=== PATIENT | female | born 1970 | race American Indian/Alaskan Native ===

== ENCOUNTER 2017-01-04 08:34 | Emergency (ER) | payer SELFPAY ==
--- NOTE | 2017-01-04 11:51 | Emergency Department Report ---
<JACOB ROLDAN - Last Filed: 01/04/17 13:21> ED General Adult HPI - General Chief complaint: Chest Pain Stated complaint: FEVER/DIZZINESS/PAIN IN BREAST Time Seen by Provider: 01/04/17 11:09 Source: patient Mode of arrival: Ambulatory Limitations: No Limitations - History of Present Illness Initial comments: bilat breast pain and nipple discharge x 6 months , hx bilat breast ca, s/p bilat mastectomy 3 yrs ago Onset/Timin -: month(s) Location: chest (bilat breast) Severity scale (0 -10): 4 Quality: aching, sharp Consistency: intermittent Improves with: none Worsens with: movement, other (palpation) Associated Symptoms: denies: chest pain, fever/chills, malaise, nausea/vomiting , rash, shortness of breath, syncope, weakness Treatments Prior to Arrival: none - Related Data Previous Rx's Medication Instructions Recorded Last Taken Type traMADol [Ultram 50 MG tab] 50 mg PO Q6HR PRN #30 tablet 01/04/17 Unknown Rx Allergies Allergy/AdvReac Type Severity Reaction Status Date / Time No Known Allergies Allergy Verified 01/04/17 08:45 ED Review of Systems ROS: Stated complaint: FEVER/DIZZINESS/PAIN IN BREAST Other details as noted in HPI Constitutional: denies: chills, fever Eyes: denies: eye pain, eye discharge, vision change ENT: denies: ear pain, throat pain Respiratory: denies: cough, shortness of breath, wheezing Cardiovascular: denies: palpitations, dyspnea on exertion, orthopnea, edema, syncope, paroxysmal nocturnal dyspnea Endocrine: no symptoms reported Gastrointestinal: denies: abdominal pain, nausea, diarrhea Genitourinary: denies: urgency, dysuria, discharge Musculoskeletal: other (bilat breast pain ) Neurological: denies: headache, weakness, paresthesias Psychiatric: denies: anxiety, depression Hematological/Lymphatic: denies: easy bleeding, easy bruising ED Past Medical Hx - Past Medical History Hx of Cancer: Yes (bilat breast) Additional medical history: fibroids. fibrocystic breast - Surgical History Hx Appendectomy: Yes Hx Breast Surgery: Yes (bilateral mast / breast implants) Additional Surgical History: tubal ligation. tonsillectomy. partial hysterectomy - Social History Smoking Status: Current Every Day Smoker Substance Use Type: Alcohol, Marijuana, Prescribed - Medications Home Medications: Home Medications Medication Instructions Recorded Confirmed Last Taken Type traMADol [Ultram 50 MG tab] 50 mg PO Q6HR PRN #30 tablet 01/04/17 Unknown Rx ED Physical Exam - General Limitations: No Limitations General appearance: alert, in no apparent distress - Head Head exam: Present: atraumatic, normocephalic - Eye Eye exam: Present: normal appearance - ENT ENT exam: Present: mucous membranes moist - Neck Neck exam: Present: normal inspection - Respiratory Respiratory exam: Present: normal lung sounds bilaterally, chest wall tenderness (bilat breast ). Absent: respiratory distress, wheezes, rales, rhonchi, stridor, accessory muscle use, decreased breath sounds, prolonged expiratory - Cardiovascular Cardiovascular Exam: Present: regular rate, normal rhythm. Absent: systolic murmur, diastolic murmur, rubs, gallop - GI/Abdominal GI/Abdominal exam: Present: soft, normal bowel sounds - Rectal Rectal exam: Present: deferred - External exam: Present: other (exam deferred ) - Extremities Exam Extremities exam: Present: normal inspection - Back Exam Back exam: Present: normal inspection - Neurological Exam Neurological exam: Present: alert, oriented X3, CN II-XII intact - Psychiatric Psychiatric exam: Present: normal affect, normal mood - Skin Skin exam: Present: warm, dry, other (bilat breast tenderness no eythema no ecchymosis no discharge at this time , bilat axillary tenderness ). Absent: erythema, ecchymosis - Expanded Skin Exam Expanded Type of lesion: Absent: rash, abscess, laceration, foreign body, bite/sting, abrasion ED Course Vital Signs 01/04/17 01/04/17 08:50 13:30 Temperature 98.8 F 98.1 F Pulse Rate 98 H 83 Respiratory 17 16 Rate Blood Pressure 120/79 Blood Pressure 119/72 [Left] O2 Sat by Pulse 99 98 Oximetry ED Medical Decision Making - Lab Data Result diagrams: 01/04/17 12:16 01/04/17 12:15 - Medical Decision Making pt is a 46 y/o aaf with hx of bilat breast ca , s/p bilat mastectomy 3 yrs ago with implantation , now presents for bilat breast and chest wall pain x 6 months pt endorses intermittent purulent nipple discharge last 2 days ago and bilat axillary tenderness, Exam with Risk Modeler at beside: appearance symetricle bilat no discharge no erythema no bilat breast wall tenderness radiating to bilat axilallary region no palpable lymph, no fluctuance no nipple discharge no excoriaton no necrosis, pt denies fever no chills, pt previously treated at [facility] , [facility] Krishnan, is known at this practice will follow up with same sherly, pt instructed to follow today or tomorrow at latest pt verbalized undertstanding and agreement with tx plan. Plan: CXR: normal. CBC, CMP,: no diagnostics supporting acute infection , no nipple discharge no erythema , pt will follow up with [facility] Provider sherly as discussed and agreed Critical care attestation.: If time is entered above; I have spent that time in minutes in the direct care of this critically ill patient, excluding procedure time. ED Disposition Disposition: DC-01 TO HOME OR SELFCARE Is pt being admited?: No Does the pt Need Aspirin: No Condition: Good Instructions: Chest Pain (ED), Thoracic Pain (ED) Additional Instructions: Follow up with [facility] Fuller , previous surgeon and oncology , as soon as possible Prescriptions: traMADol [Ultram 50 MG tab] 50 mg PO Q6HR PRN #30 tablet PRN Reason: Pain Referrals: PRIMARY CARE,MD [Primary Care Provider] - 3-5 Days Forms: Work/School Release Form(ED) Time of Disposition: 13:15 <JERAD YANCEY - Last Filed: 01/04/17 13:46> ED Medical Decision Making - Lab Data Result diagrams: 01/04/17 12:16 01/04/17 12:15
[2017-01-04] MEDS ORDERED: ULTRAM PO ONE (11:55)
[2017-01-04 12:22] LABS: Basophils % (Auto) 1.1 % (0.0-1.8); Eosinophils % (Auto) 2.6 % (0.0-4.3); Hematocrit 39.2 % (30.3-42.9); Hemoglobin 13.2 gm/dl (10.1-14.3); Mean Corpuscular HGB Conc 34 % (30-34); Mean Corpuscular Hemoglobin 34 pg (28-32); Mean Corpuscular Volume 100 fl (79-97); Platelet Count 206 K/mm3 (140-440); Red Blood Count 3.93 M/mm3 (3.65-5.03); Red Cell Distribution Width 13.7 % (13.2-15.2); White Blood Count 7.8 K/mm3 (4.5-11.0)
--- NOTE | 2017-01-04 12:33 | XRay Report ---
CHEST 2 VIEWS INDICATION: Breast mass bilateral. History of bilateral mastectomy with implants 2 years ago. COMPARISON: 05/02/2016. FINDINGS: PA and lateral chest radiographs demonstrate normal cardiomediastinal silhouette. Clear lungs. Intact bones. CONCLUSION: No acute disease in the chest. Thank you for the opportunity to participate in this patient's care.
[2017-01-04 12:48] LABS: Alanine Aminotransferase 10 units/L (7-56); Albumin/Globulin Ratio 1.4 %; Alkaline Phosphatase 67 units/L (35-129); Anion Gap 17 mmol/L; Blood Urea Nitrogen 7 mg/dL (7-17); Calcium 8.4 mg/dL (8.4-10.2); Carbon Dioxide 24 mmol/L (22-30); Chloride 103.2 mmol/L (98-107); Glucose 75 mg/dL (65-100); Potassium 3.9 mmol/L (3.6-5.0); Sodium 140 mmol/L (137-145); Total Protein 6.8 g/dL (6.3-8.2)
[2017-01-04 13:31] VITALS: BP 119/72
== END 2017-01-04 13:32 | disposition home or self-care (01) ==
LOC: ED 08:34
DX: N64.4 Mastodynia (principal); N64.52 Nipple discharge; R07.89 Other chest pain; D25.9 Leiomyoma of uterus, unspecified; F17.200 Nicotine dependence, unspecified, uncomplicated; F12.10 Cannabis abuse, uncomplicated; Z90.89 Acquired absence of other organs; Z90.710 Acquired absence of both cervix and uterus; Z98.51 Tubal ligation status; Z90.49 Acquired absence of other specified parts of digestive tract; Z85.3 Personal history of malignant neoplasm of breast; Z90.13 Acquired absence of bilateral breasts and nipples
CPT/HCPCS: 36415; 71020; 80053; 85025; 99284

== ENCOUNTER 2017-01-11 17:43 | Emergency (ER) | payer SELFPAY | END 2017-01-11 18:27 | disposition left against medical advice (07) | LOC: ED 17:43 | DX: R50.9 Fever, unspecified (principal); Z53.21 Procedure and treatment not carried out due to patient leaving prior to being seen by health care provider ==

== ENCOUNTER 2017-03-01 17:08 | Emergency (ER) | payer SELFPAY ==
[2017-03-01 19:14] VITALS: BP 124/89
[2017-03-01 19:33] LABS: Basophils % (Auto) 1.1 % (0.0-1.8); Eosinophils % (Auto) 3.9 % (0.0-4.3); Hematocrit 36.7 % (30.3-42.9); Hemoglobin 12.7 gm/dl (10.1-14.3); Mean Corpuscular HGB Conc 35 % (30-34); Mean Corpuscular Hemoglobin 35 pg (28-32); Mean Corpuscular Volume 100 fl (79-97); Platelet Count 201 K/mm3 (140-440); Red Blood Count 3.69 M/mm3 (3.65-5.03); Red Cell Distribution Width 13.5 % (13.2-15.2); White Blood Count 8.9 K/mm3 (4.5-11.0)
[2017-03-01 19:53] LABS: Alanine Aminotransferase 16 units/L (7-56); Albumin/Globulin Ratio 1.4 %; Alkaline Phosphatase 63 units/L (35-129); BUN/Creatinine Ratio 14.54; Blood Urea Nitrogen 16 mg/dL (7-17); Calcium 8.1 mg/dL (8.4-10.2); Carbon Dioxide 24 mmol/L (22-30); Glucose 86 mg/dL (65-100); Total Protein 6.9 g/dL (6.3-8.2)
[2017-03-01 19:54] LABS: Anion Gap 17 mmol/L; Chloride 105.6 mmol/L (98-107); Potassium 3.7 mmol/L (3.6-5.0); Sodium 143 mmol/L (137-145)
[2017-03-01] MEDS ORDERED: FLEXERIL PO ONE (21:05)
[2017-03-01] MEDS ORDERED: TORADOL IM ONE (21:05)
[2017-03-01 22:10] LABS: Bacteria,Urine 3+ /HPF (Negative); Bilirubin,Urine NEG (Negative); Blood,Urine MOD (Negative); Ketones,Urine NEG (Negative); Leukocyte Esterase,Urine NEG (Negative); Mucus,Urine 3+ /HPF; Nitrite,Urine POS (Negative); Protein,Urine <15 mg/dL mg/dL (Negative); Urobilinogen,Urine < 2.0 mg/dL (<2.0)
--- NOTE | 2017-03-01 22:18 | Emergency Department Report ---
ED General Adult HPI - General Chief complaint: Pain General Stated complaint: LT BREAST PAIN Time Seen by Provider: 03/01/17 20:43 Source: family Mode of arrival: Ambulatory Limitations: No Limitations - History of Present Illness Initial comments: low back pain radiating to left LE x 4 days does endorse unrinary frequency and urgency no burning no vaginal discharge no sexual activity , also requesting referral to Breast clinic follow up mastectomy 6 yrs ago pt endorses that she lost her insurance and has been unable to see produce runner for follow up mammogram , pt denies breast symptoms at this time Onset/Timin -: days(s) Location: back Radiation: extremity Severity scale (0 -10): 7 Quality: aching Consistency: intermittent Improves with: rest Worsens with: movement, other (bending and twisting ) Associated Symptoms: denies: chest pain, diaphoresis, fever/chills, loss of appetite, malaise, nausea/vomiting, rash, shortness of breath Treatments Prior to Arrival: none - Related Data Previous Rx's Medication Instructions Recorded Last Taken Type traMADol [Ultram 50 MG tab] 50 mg PO Q6HR PRN #30 tablet 01/04/17 Unknown Rx Cyclobenzaprine [Flexeril] 10 mg PO TID PRN #30 tablet 03/01/17 Unknown Rx Naproxen [Naprosyn TAB] 500 mg PO BID PRN #30 tablet 03/01/17 Unknown Rx Sulfamethoxazole/Trimethoprim 1 each PO BID #14 tablet 03/01/17 Unknown Rx [Bactrim DS TAB] Allergies Allergy/AdvReac Type Severity Reaction Status Date / Time No Known Allergies Allergy Verified 03/01/17 19:09 ED Review of Systems ROS: Stated complaint: LT BREAST PAIN Other details as noted in HPI Constitutional: denies: chills, fever Eyes: denies: eye pain, eye discharge, vision change ENT: denies: ear pain, throat pain Respiratory: denies: cough, shortness of breath, wheezing Cardiovascular: denies: chest pain, palpitations Endocrine: no symptoms reported Gastrointestinal: denies: abdominal pain, nausea, diarrhea Genitourinary: urgency, frequency. denies: dysuria, hematuria, discharge, abnormal menses, dyspareunia Musculoskeletal: back pain Skin: denies: rash, lesions Neurological: denies: headache, weakness, numbness, paresthesias, abnormal gait , vertigo Psychiatric: denies: anxiety, depression Hematological/Lymphatic: denies: easy bleeding, easy bruising ED Past Medical Hx - Past Medical History Previous Medical History?: Yes Additional medical history: fibroids. fibrocystic breast - Surgical History Hx Appendectomy: Yes Hx Breast Surgery: Yes (bilateral mast / breast implants) Additional Surgical History: tubal ligation. tonsillectomy. partial hysterectomy - Social History Smoking Status: Current Every Day Smoker Substance Use Type: Alcohol - Medications Home Medications: Home Medications Medication Instructions Recorded Confirmed Last Taken Type traMADol [Ultram 50 MG tab] 50 mg PO Q6HR PRN #30 tablet 01/04/17 Unknown Rx Cyclobenzaprine [Flexeril] 10 mg PO TID PRN #30 tablet 03/01/17 Unknown Rx Naproxen [Naprosyn TAB] 500 mg PO BID PRN #30 tablet 03/01/17 Unknown Rx Sulfamethoxazole/Trimethoprim 1 each PO BID #14 tablet 03/01/17 Unknown Rx [Bactrim DS TAB] ED Physical Exam - General Limitations: No Limitations General appearance: alert, in no apparent distress - Head Head exam: Present: atraumatic, normocephalic - Eye Eye exam: Present: normal appearance - ENT ENT exam: Present: mucous membranes moist - Neck Neck exam: Present: normal inspection - Respiratory Respiratory exam: Present: normal lung sounds bilaterally. Absent: respiratory distress - Cardiovascular Cardiovascular Exam: Present: regular rate, normal rhythm. Absent: systolic murmur, diastolic murmur, rubs, gallop - GI/Abdominal GI/Abdominal exam: Present: soft, normal bowel sounds - Rectal Rectal exam: Present: deferred - Extremities Exam Extremities exam: Present: normal inspection, full ROM, normal capillary refill. Absent: tenderness, pedal edema, joint swelling, calf tenderness - Back Exam Back exam: Present: normal inspection, full ROM, CVA tenderness (L), other ( mild sciatic notch tenderness to deep palpation ). Absent: tenderness, CVA tenderness (R), muscle spasm, paraspinal tenderness, vertebral tenderness, rash noted - Expanded Back Exam Expanded Back exam: Sciatic Notch Tenderness: Left, Positive Straight Leg Raise: Left - Neurological Exam Neurological exam: Present: alert, oriented X3, CN II-XII intact, normal gait, reflexes normal. Absent: motor sensory deficit - Expanded Neurological Exam Expanded Patient oriented to: Present: person, place, time Speech: Present: fluid speech Cranial nerves: EOM's Intact: Normal, Gag Reflex: Normal, Tongue Deviation: Normal Cerebellar function: Finger to Nose: Normal, Heel to Archer: Normal, Romberg: Normal Upper motor neuron: Apolinar Neglect: Normal, Pronator Drift: Normal, Babinski Sign : Normal, Sensory Extinction: Normal Sensory exam: Upper Extremity Light Touch: Normal, Upper Extremity Pin Prick: Normal, Upper Extremity Temperature: Normal, UE 2 Point Discrimination: Normal, Lower Extremity Light Touch: Normal, Lower Extremity Pin Prick: Normal, Lower Extremity Temperature: Normal, LE 2 Point Discrimination: Normal Motor strength exam: RUE: 5, LUE: 5, RLE: 5, LLE: 5 DTR: bicep (R): 2+, bicep (L): 2+, tricep (R): 2+, tricep (L): 2+, knee (R): 2+ , knee (L): 2+, ankle (R): 2+, ankle (L): 2+ Best Eye Response ([place]): (4) open spontaneously Best Motor Response (Sofiya): (6) obeys commands Best Verbal Response ([place]): (5) oriented [place] Total: 15 - Psychiatric Psychiatric exam: Present: normal affect, normal mood - Skin Skin exam: Present: warm, dry, intact, normal color. Absent: rash ED Course Vital Signs 03/01/17 03/01/17 19:09 21:32 Temperature 98.9 F Pulse Rate 81 Respiratory 18 18 Rate Blood Pressure 124/89 O2 Sat by Pulse 100 Oximetry ED Medical Decision Making - Lab Data Result diagrams: 03/01/17 19:23 03/01/17 19:23 Laboratory Tests 03/01/17 03/01/17 03/01/17 19:23 19:23 21:47 WBC 8.9 RBC 3.69 Hgb 12.7 Hct 36.7 MCV 100 H MCH 35 H MCHC 35 H RDW 13.5 Plt Count 201 Lymph % (Auto) 46.8 H [place] % (Auto) 6.6 Eos % (Auto) 3.9 Baso % (Auto) 1.1 Lymph # 4.2 [place] # 0.6 Eos # 0.4 Baso # 0.1 Seg Neutrophils % 41.6 Seg Neutrophils # 3.7 Sodium 143 Potassium 3.7 Chloride 105.6 Carbon Dioxide 24 Anion Gap 17 BUN 16 Creatinine 1.1 Estimated GFR > 60 BUN/Creatinine Ratio 14.54 Glucose 86 Calcium 8.1 L Total Bilirubin 0.20 AST 20 ALT 16 Alkaline Phosphatase 63 Total Protein 6.9 Albumin 4.0 Albumin/Globulin Ratio 1.4 Urine Color Yellow Urine Turbidity Slightly-cloudy Urine pH 5.0 Ur Specific [place] 1.028 Urine Protein <15 mg/dl Urine Glucose (UA) Neg Urine Ketones Neg Urine Blood Mod Urine Nitrite Pos Ur Reducing Substances Not Reportable Urine Bilirubin Neg Urine Ictotest Not Reportable Urine Urobilinogen < 2.0 Ur Leukocyte Esterase Neg Urine WBC (Auto) 5.0 Urine RBC (Auto) 4.0 U Epithel Cells (Auto) 15.0 H Urine Bacteria (Auto) 3+ Urine Mucus 3+ Urine HCG, Qual Negative - Medical Decision Making pt is a 46 y/o aaf with hx breat CA, s/p bilat mastectomy 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 x 4 days pt endorse that she strained her back at work, exam: no posterior vertebral point tenderness no paraspinus muscle tenderness pos straight leg raise right , mild left cva tenderness , there is no paresthesia no numbness no tingling no loss or decrease in bowel or bladder function, pt remain ambulatory to baseline rom is unrestricted, ua; pos nitrates will tx for uti, nsaids prn pain, pt will follow up with [facility] next week, pt will follow up with [facility] will call on sunday to setup appointment for follow Mammogram and breast exams going forward pt verbalized agreement and understanding of discharge plan. Critical care attestation.: If time is entered above; I have spent that time in minutes in the direct care of this critically ill patient, excluding procedure time. ED Disposition Clinical Impression: UTI (urinary tract infection) Qualifiers: Urinary tract infection type: acute cystitis Hematuria presence: without hematuria Qualified Code(s): N30.00 - Acute cystitis without hematuria Low back strain Qualifiers: Encounter type: initial encounter Qualified Code(s): S39.012A - Strain of muscle, fascia and tendon of lower back, initial encounter Disposition: TO HOME OR SELFCARE Is pt being admited?: No Does the pt Need Aspirin: No Condition: Good Instructions: Low Back Strain (ED), Urinary Tract Infection in Women (ED) Additional Instructions: follow up with [facility] as directed [phone], and [facility] [phone] Prescriptions: Cyclobenzaprine [Flexeril] 10 mg PO TID PRN #30 tablet PRN Reason: Muscle Spasm Naproxen [Naprosyn TAB] 500 mg PO BID PRN #30 tablet PRN Reason: Pain , Severe (7-10) Sulfamethoxazole/Trimethoprim [Bactrim DS TAB] 1 each PO BID #14 tablet Referrals: PRIMARY CARE, [Primary Care Provider] - 3-5 Days Forms: Work/School Release Form(ED) Time of Disposition: 22:29
== END 2017-03-01 22:40 | disposition home or self-care (01) ==
LOC: ED 17:08
DX: N39.0 Urinary tract infection, site not specified (principal); S39.012A Strain of muscle, fascia and tendon of lower back, initial encounter; F17.210 Nicotine dependence, cigarettes, uncomplicated; X58.XXXA Exposure to other specified factors, initial encounter; Y93.89 Activity, other specified; Y92.89 Other specified places as the place of occurrence of the external cause; Y99.8 Other external cause status
CPT/HCPCS: 36415; 80053; 81001; 81025; 85025; 93005; 93010; 96372; 99283; J1885

== ENCOUNTER 2018-10-10 16:57 | Emergency (ER) | payer OTHER ==
--- NOTE | 2018-10-10 17:12 | Emergency Department Report ---
Blank Doc - Documentation Documentation: This is a 48-year-old female that presents with URI symptoms with n/v. This initial assessment/diagnostic orders/clinical plan/treatment(s) is/are subject to change based on patient's health status, clinical progression and re- assessment by fellow clinical providers in the ED. Further treatment and workup at subsequent clinical providers discretion. Patient/guardians urged not to elope from the ED as their condition may be serious if not clinically assessed and managed. Initial orders include: 1- Patient sent to [facility] for further evaluation and treatment 2- CXR
[2018-10-10 17:15] VITALS: BP 143/80
--- NOTE | 2018-10-10 17:55 | XRay Report ---
PROCEDURE: XR CHEST ROUTINE 2V TECHNIQUE: PA and lateral views of the chest. HISTORY: cough . History of breast cancer COMPARISONS: CXR 12/15/2018 FINDINGS: Lines, tubes, and devices: N/A Lungs and pleura: Trachea is normal in position. Lungs are clear of infiltrate, pleural effusion, vas cular congestion, or pneumothorax. No change. Nodular densities over each lung base are stable and li osvaldo represent nipple shadows. Cardiomediastinal silhouette: Cardiac and mediastinal silhouettes are unremarkable. Other: Bony structures are intact. IMPRESSION: No acute cardiopulmonary process seen. No change.. Nodular densities over each lung base likely repre sent nipple shadows and have been seen previously This document is electronically signed by Adrienne Stokes MD., October 10 2018 05:53:03 PM ET
[2018-10-10] MEDS ORDERED: DELTASONE PO ONE (17:59)
[2018-10-10] MEDS ORDERED: ZOFRAN ODT PO ONE (17:59)
[2018-10-10] MEDS ORDERED: ROBITUSSIN PO ONE (17:59)
--- NOTE | 2018-10-10 18:03 | Emergency Department Report ---
Minor Respiratory - HPI Chief Complaint: Upper Respiratory Infection Stated Complaint: COUGH/DIZZY/VOMIT/PAIN Time Seen by Provider: 10/10/18 17:11 Duration: 1 week Pain Location: Throat, Nose Severity: moderate Minor Respiratory: Yes Able to Tolerate Fluids (some), No Rhinorrhea, No Sore Throat, No Ear Pain, No Cough, No Sick Contacts, No Hemoptysis, No Chest Pain, No Shortness of Breath, No Fever Other History: She is a 48-year-old female who was presents to the ED complaining of mucus productive cough, lesion with some nausea vomiting. Patient is a cigarette smoker and has a history of asthma. Patient states his symptoms have gone on for about a week. Patient states she took an ibuprofen and Mucinex with the patient's that she has loss of appetite but she is able to eat moderately.Chest pain/shortness of breath/fever ED Review of Systems ROS: Stated complaint: COUGH/DIZZY/VOMIT/PAIN Other details as noted in HPI ED Past Medical Hx - Past Medical History Additional medical history: fibroids. fibrocystic breast - Surgical History Hx Appendectomy: Yes Hx Breast Surgery: Yes (bilateral mast / breast implants) Additional Surgical History: tubal ligation. tonsillectomy. partial hysterectomy. breast removal - Social History Smoking Status: Current Some Day Smoker Substance Use Type: Alcohol, Marijuana - Medications Home Medications: Home Medications Medication Instructions Recorded Confirmed Last Taken Type traMADol [Ultram 50 MG tab] 50 mg PO Q6HR PRN #30 tablet 01/04/17 Unknown Rx Cyclobenzaprine [Flexeril] 10 mg PO TID PRN #30 tablet 03/01/17 Unknown Rx Naproxen [Naprosyn TAB] 500 mg PO BID PRN #30 tablet 03/01/17 Unknown Rx Sulfamethoxazole/Trimethoprim 1 each PO BID #14 tablet 03/01/17 Unknown Rx [Bactrim DS TAB] Cyclobenzaprine [Flexeril] 10 mg PO TID PRN #30 tablet 06/08/18 Unknown Rx Ibuprofen 400 mg PO QID 5 Days #20 tablet 06/08/18 Unknown Rx Cyclobenzaprine [Flexeril] 10 mg PO QHS PRN #10 tablet 07/17/18 Unknown Rx Naproxen 500 mg PO Q8H PRN #20 tablet 07/17/18 Unknown Rx Acetamin/Codeine 120-12Mg/5 ml 5 ml PO TID PRN #60 ml 10/10/18 Unknown Rx [Tylenol/Codeine] Azithromycin [Zithromax] 250 mg PO DAILY #6 tablet 10/10/18 Unknown Rx Ondansetron [Zofran ODT TAB] 8 mg PO TID #20 tab.rapdis 10/10/18 Unknown Rx predniSONE [Deltasone] 40 mg PO QDAY #10 tab 10/10/18 Unknown Rx Minor Respiratory Exam - Exam General: Vital signs noted. No distress. Alert and acting appropriately. Neurologic: Alert and oriented, no deficits. Musculoskeletal: Unremarkable. ED Course Vital Signs 10/10/18 17:11 Temperature 98.2 F Pulse Rate 92 H Respiratory 18 Rate Blood Pressure 143/80 O2 Sat by Pulse 96 Oximetry ED Medical Decision Making - Radiology Data Radiology results: report reviewed, image reviewed interpreted by me: HISTORY: cough . History of breast cancer COMPARISONS: CXR 12/15/2018 FINDINGS: Lines, tubes, and devices: N/A Lungs and pleura: Trachea is normal in position. Lungs are clear of infiltrate, pleural effusion, vascular congestion, or pneumothorax. No change. Nodular densities over each lung base are stable and likely represent nipple shadows. Cardiomediastinal silhouette: Cardiac and mediastinal silhouettes are unremarkable. Other: Bony structures are intact. IMPRESSION: No acute cardiopulmonary process seen. No change.. Nodular densities over each lung base likely represent nipple shadows and have been seen previously This document is electronically signed by Adrienne Stokes MD., October 10 2018 05:53:03 PM ET Transcribed By: [facility] Dictated By: ADRIENNE STOKES MD Electronically Authenticated By: ADRIENNE STOKES MD Signed Date/Time: 10/10/18 1758 - Medical Decision Making 48-year-old male presents with flulike symptomsupper respiratory infection. Fever resolved no fever during the ED stay. Discussed with the patient symptomatic relief with [id number] medications. Discussed continue Tylenol and Motrin as needed for fever and pain. Discussed increase fluids and diet intake. Discussed rest much needed. Discussed daily vitamin C for immune booster. Discussed follow-up with hand compositor in 3-5 days. Patient verbally states she understands and will comply the following instructions and follow-up Vital signs stable. Patient is in no acute distress Critical care attestation.: If time is entered above; I have spent that time in minutes in the direct care of this critically ill patient, excluding procedure time. ED Disposition Clinical Impression: Upper respiratory infection Disposition: - TO HOME OR SELFCARE Is pt being admited?: No Does the pt Need Aspirin: No Condition: Stable Instructions: Viral Pneumonia (ED), Upper Respiratory Infection (ED), Viral Syndrome (ED) Additional Instructions: Make sure to follow up with the primary care physician as discussed. Take all your medications as you've been prescribed. If you have any worsening symptoms or develop new symptoms please return to ED immediately. Prescriptions: predniSONE [Deltasone] 40 mg PO QDAY #10 tab Acetamin/Codeine 120-12Mg/5 ml [Tylenol/Codeine] 5 ml PO TID PRN #60 ml PRN Reason: Pain Azithromycin [Zithromax] 250 mg PO DAILY #6 tablet Ondansetron [Zofran ODT TAB] 8 mg PO TID #20 tab.rapdis Referrals: [facility] [Other] - 3-5 Days Forms: Accompanied Note, Work/School Release Form(ED) Time of Disposition: 18:44
== END 2018-10-10 18:56 | disposition home or self-care (01) ==
LOC: ED 16:57
DX: J06.9 Acute upper respiratory infection, unspecified (principal); F17.200 Nicotine dependence, unspecified, uncomplicated; F12.10 Cannabis abuse, uncomplicated; Z90.710 Acquired absence of both cervix and uterus; Z98.51 Tubal ligation status; Z90.49 Acquired absence of other specified parts of digestive tract; Z79.899 Other long term (current) drug therapy
CPT/HCPCS: 71046; 99283; J7512; Q0162

== ENCOUNTER 2019-08-13 20:52 | Emergency (ER) | payer OTHER ==
[2019-08-13 21:04] VITALS: BP 136/92
--- NOTE | 2019-08-13 21:57 | Emergency Department Report ---
Upper Respiratory HPI - HPI Chief Complaint: Upper Respiratory Infection Stated Complaint: FLU LIKE SYMPTOMS Time Seen by Provider: 08/13/19 21:51 Duration: 2 Days URI Symptoms: Rhinorrhea: No, Sore Throat: No, Ear Pain: No, Cough: Yes, Shortness of Breath: No, Sick Contacts: No, Unable to Take Fluids: No, Urine Output Abnormal: No, Listless Behavior: No Other History: This is a 49-year-old female nontoxic well in [facility] with no signs of distress presents with dry nonproductive cough x2 days. Patient denies any chest pain, shortness of breathe, fever, chills, nausea, vomiting, headache, stiff neck, abdominal pain, numbness or tingling. Patient denies any recent travels, long car rides, or recent hospital stays. Denies any allergies or significant PMH. - Home Meds and Allergies Home Medications: Previous Rx's Medication Instructions Recorded Last Taken Type traMADoL [Ultram 50 MG tab] 50 mg PO Q6HR PRN #30 tablet 01/04/17 Unknown Rx Cyclobenzaprine [Flexeril] 10 mg PO TID PRN #30 tablet 03/01/17 Unknown Rx Naproxen [Naprosyn TAB] 500 mg PO BID PRN #30 tablet 03/01/17 Unknown Rx Sulfamethoxazole/Trimethoprim 1 each PO BID #14 tablet 03/01/17 Unknown Rx [Bactrim DS TAB] Cyclobenzaprine [Flexeril] 10 mg PO TID PRN #30 tablet 06/08/18 Unknown Rx Ibuprofen [Ibuprofen 400] 400 mg PO QID 5 Days #20 tablet 06/08/18 Unknown Rx Cyclobenzaprine [Flexeril] 10 mg PO QHS PRN #10 tablet 07/17/18 Unknown Rx Naproxen 500 mg PO Q8H PRN #20 tablet 07/17/18 Unknown Rx Acetamin/Codeine 120-12Mg/5 ml 5 ml PO TID PRN #60 ml 10/10/18 Unknown Rx [Tylenol/Codeine] Azithromycin [Zithromax] 250 mg PO DAILY #6 tablet 10/10/18 Unknown Rx Ondansetron [Zofran ODT TAB] 8 mg PO TID #20 tab.rapdis 10/10/18 Unknown Rx predniSONE [Deltasone] 40 mg PO QDAY #10 tab 10/10/18 Unknown Rx traMADoL [Ultram 50 MG tab] 50 mg PO Q6HR PRN #10 tablet 11/21/18 Unknown Rx Allergies/Adverse Reactions: Allergies Allergy/AdvReac Type Severity Reaction Status Date / Time No Known Allergies Allergy Verified 11/21/18 16:06 ED Review of Systems ROS: Stated complaint: FLU LIKE SYMPTOMS Other details as noted in HPI Constitutional: denies: chills, fever Eyes: denies: eye pain, eye discharge, vision change ENT: congestion. denies: ear pain, throat pain Respiratory: cough. denies: shortness of breath, wheezing Cardiovascular: denies: chest pain, palpitations Endocrine: no symptoms reported Gastrointestinal: denies: abdominal pain, nausea, diarrhea Genitourinary: denies: urgency, dysuria, discharge Musculoskeletal: denies: back pain, joint swelling, arthralgia Skin: denies: rash, lesions Neurological: denies: headache, weakness, paresthesias Psychiatric: denies: anxiety, depression Hematological/Lymphatic: denies: easy bleeding, easy bruising ED Past Medical Hx - Past Medical History Previous Medical History?: Yes Additional medical history: fibroids. fibrocystic breast - Surgical History Hx Appendectomy: Yes Hx Breast Surgery: Yes (bilateral mast / breast implants) Additional Surgical History: tubal ligation. tonsillectomy. partial hysterectomy. breast removal - Social History Smoking Status: Never Smoker Substance Use Type: None - Medications Home Medications: Home Medications Medication Instructions Recorded Confirmed Last Taken Type traMADoL [Ultram 50 MG tab] 50 mg PO Q6HR PRN #30 tablet 01/04/17 Unknown Rx Cyclobenzaprine [Flexeril] 10 mg PO TID PRN #30 tablet 03/01/17 Unknown Rx Naproxen [Naprosyn TAB] 500 mg PO BID PRN #30 tablet 03/01/17 Unknown Rx Sulfamethoxazole/Trimethoprim 1 each PO BID #14 tablet 03/01/17 Unknown Rx [Bactrim DS TAB] Cyclobenzaprine [Flexeril] 10 mg PO TID PRN #30 tablet 06/08/18 Unknown Rx Ibuprofen [Ibuprofen 400] 400 mg PO QID 5 Days #20 tablet 06/08/18 Unknown Rx Cyclobenzaprine [Flexeril] 10 mg PO QHS PRN #10 tablet 07/17/18 Unknown Rx Naproxen 500 mg PO Q8H PRN #20 tablet 07/17/18 Unknown Rx Acetamin/Codeine 120-12Mg/5 ml 5 ml PO TID PRN #60 ml 10/10/18 Unknown Rx [Tylenol/Codeine] Azithromycin [Zithromax] 250 mg PO DAILY #6 tablet 10/10/18 Unknown Rx Ondansetron [Zofran ODT TAB] 8 mg PO TID #20 tab.rapdis 10/10/18 Unknown Rx predniSONE [Deltasone] 40 mg PO QDAY #10 tab 10/10/18 Unknown Rx traMADoL [Ultram 50 MG tab] 50 mg PO Q6HR PRN #10 tablet 11/21/18 Unknown Rx ED Bronchiolitis Physical Exam - Exam General: Vital signs noted. No distress. Alert and acting appropriately. Neurologic: Alert and oriented, no deficits. Musculoskeletal: Unremarkable. ED Physical Exam - General Limitations: No Limitations General appearance: alert, in no apparent distress - Head Head exam: Present: atraumatic, normocephalic - ENT ENT exam: Present: normal exam, normal orophraynx - Neck Neck exam: Present: normal inspection, full ROM. Absent: tenderness, meningismus, lymphadenopathy - Respiratory Respiratory exam: Present: normal lung sounds bilaterally. Absent: respiratory distress, wheezes, rales, rhonchi, stridor, chest wall tenderness, accessory muscle use, decreased breath sounds, prolonged expiratory - Cardiovascular Cardiovascular Exam: Present: regular rate, normal rhythm, normal heart sounds. Absent: bradycardia, tachycardia, irregular rhythm, systolic murmur, diastolic murmur, rubs, gallop - Extremities Exam Extremities exam: Present: normal inspection, full ROM - Back Exam Back exam: Present: normal inspection, full ROM. Absent: tenderness, CVA tenderness (R), CVA tenderness (L), muscle spasm, paraspinal tenderness, vertebral tenderness, rash noted - Neurological Exam Neurological exam: Present: alert, oriented X3, normal gait - Psychiatric Psychiatric exam: Present: normal affect, normal mood - Skin Skin exam: Present: warm, dry, intact, normal color. Absent: rash ED Course Vital Signs 08/13/19 21:03 Temperature 98.2 F Pulse Rate 80 Respiratory 12 Rate Blood Pressure 136/92 O2 Sat by Pulse 99 Oximetry - Reevaluation(s) Reevaluation #1: 08/13/19 21:56 Patient is speaking in full sentences with no signs of distress noted. ED Medical Decision Making - Medical Decision Making 49-year-old female that presents with viral bronchitis like symptoms. Patient is stable and was examined by me. Vital signs are stable. Patient was instructed to Follow-up with a primary care doctor in 3-5 days or if symptoms worsen and continue return to emergency room as soon as possible. At time of discharge, the patient does not seem toxic or ill in appearance. No acute signs of distress noted. Patient agrees to discharge treatment plan of care. No further questions noted by the patient. Critical care attestation.: If time is entered above; I have spent that time in minutes in the direct care of this critically ill patient, excluding procedure time. ED Disposition Clinical Impression: Viral bronchitis Disposition: Z-07 MED SCREENING EXAM-LEFT Is pt being admited?: No Does the pt Need Aspirin: No Condition: Stable Additional Instructions: Follow-up with a primary care doctor in 3-5 days or if symptoms worsen and continue return to emergency room as soon as possible. Referrals: PRIMARY MD AMAURY [Referring] - 3-5 Days LINDY GEORGES MD [Staff Physician] - 3-5 Days [facility] [Outside] - 3-5 Days
== END 2019-08-13 21:59 | disposition left against medical advice (07) ==
LOC: ED 20:52
DX: J20.8 Acute bronchitis due to other specified organisms (principal); D21.9 Benign neoplasm of connective and other soft tissue, unspecified; Z90.49 Acquired absence of other specified parts of digestive tract; Z98.51 Tubal ligation status; Z90.710 Acquired absence of both cervix and uterus; Z98.890 Other specified postprocedural states; Z79.1 Long term (current) use of non-steroidal anti-inflammatories (NSAID); Z79.899 Other long term (current) drug therapy
CPT/HCPCS: 99281

== ENCOUNTER 2020-07-19 10:51 | Emergency (ER) | payer BC, OTHER ==
[2020-07-19] MEDS ORDERED: ACETAMINOPHEN 325 MG TAB PO ONE (11:10)
--- NOTE | 2020-07-19 11:10 | Emergency Department Report ---
Blank Doc - Documentation Documentation: 50-year-old female that presents with abdominal pain with destination and left breast pain and swelling. Has HX of bilateral mastectomy. This initial assessment/diagnostic orders/clinical plan/treatment(s) is/are subject to change based on patient's health status, clinical progression and re- assessment by fellow clinical providers in the ED. Further treatment and workup at subsequent clinical providers discretion. Patient/guardians urged not to elope from the ED as their condition may be serious if not clinically assessed and managed. Initial orders include: 1- Patient sent to [facility] for further evaluation and treatment 2- labs 3- UA
[2020-07-19 11:12] VITALS: BP 143/90
[2020-07-19 12:59] LABS: Albumin 4.2 g/dL (3.9-5); Calcium 8.9 mg/dL (8.4-10.2)
[2020-07-19 13:04] LABS: Basophils # (Auto) 0.1 K/mm3 (0.0-0.1); Basophils % (Auto) 1.7 % (0.0-1.8); Eosinophils # (Auto) 0.1 K/mm3 (0.0-0.4); Eosinophils % (Auto) 0.9 % (0.0-4.3); Hematocrit 40.3 % (30.3-42.9); Hemoglobin 14.3 gm/dl (10.1-14.3); Lymphocytes # (Auto) 3.1 K/mm3 (1.2-5.4); Lymphocytes % (Auto) 45.5 % (13.4-35.0); Mean Corpuscular HGB Conc 36 % (30-34); Mean Corpuscular Volume 99 fl (79-97); Monocytes # (Auto) 0.4 K/mm3 (0.0-0.8); Monocytes % (Auto) 5.7 % (0.0-7.3); Platelet Count 213 K/mm3 (140-440); Red Blood Count 4.08 M/mm3 (3.65-5.03); Red Cell Distribution Width 13.3 % (13.2-15.2)
[2020-07-19] MEDS ORDERED: MORPHINE 2 MG/1 ML INJ IV ONE (17:22)
[2020-07-19] MEDS ORDERED: ONDANSETRON 4 MG/2 ML INJ IV ONE (17:22)
--- NOTE | 2020-07-19 17:36 | Emergency Department Report ---
ED Abdominal Pain HPI - General Chief Complaint: Abdominal Pain Stated Complaint: ABD PAIN, SWELLING IN LT BREAST,SOB Time Seen by Provider: 07/19/20 11:08 Source: patient Mode of arrival: Ambulatory Limitations: No Limitations - History of Present Illness Initial Comments: 50-year-old female, history of breast cancer with bilateral mastectomy with anthony nstruction and later removal of breast implants, partial hysterectomy, presents to ED with abdominal distention and swelling to the left chest. Patient states over the last 2 weeks, she has been noticing gradual abdominal distention. She denies any fever, nausea, vomiting, diarrhea. Patient denies any regular alcohol use, reports she only drinks occasionally. She also reports that she has been having some pain and swelling in the left chest wall. Patient states that she has been having the symptoms in the left chest wall off and on for the last 10 years since having her breast implants and later having them removed. She states doctors have told her that the swelling and pain is due to inflammation caused by the breast implants. Patient states the pain is located on the left side and radiates around to the back. She also reports some left upper quadrant pain, but is not sure if it is pain that is radiating from her chest. MD Complaint: abdominal pain -: week(s) (2) Location: LLQ Radiation: none Migration to: no migration Severity: moderate Severity scale (0 -10): 10 Consistency: constant Improves With: nothing Worsens With: movement Associated Symptoms: denies: nausea, vomiting, diarrhea, fever - Related Data Previous Rx's Medication Instructions Recorded Last Taken Type traMADoL [Ultram 50 MG tab] 50 mg PO Q6HR PRN #30 tablet 01/04/17 Unknown Rx Cyclobenzaprine [Flexeril] 10 mg PO TID PRN #30 tablet 03/01/17 Unknown Rx Naproxen [Naprosyn TAB] 500 mg PO BID PRN #30 tablet 03/01/17 Unknown Rx Sulfamethoxazole/Trimethoprim 1 each PO BID #14 tablet 03/01/17 Unknown Rx [Bactrim DS TAB] Cyclobenzaprine [Flexeril] 10 mg PO TID PRN #30 tablet 06/08/18 Unknown Rx Ibuprofen [Ibuprofen 400] 400 mg PO QID 5 Days #20 tablet 06/08/18 Unknown Rx Cyclobenzaprine [Flexeril] 10 mg PO QHS PRN #10 tablet 07/17/18 Unknown Rx Naproxen 500 mg PO Q8H PRN #20 tablet 07/17/18 Unknown Rx Acetamin/Codeine 120-12Mg/5 ml 5 ml PO TID PRN #60 ml 10/10/18 Unknown Rx [Tylenol/Codeine] Azithromycin [Zithromax] 250 mg PO DAILY #6 tablet 10/10/18 Unknown Rx Ondansetron [Zofran ODT TAB] 8 mg PO TID #20 tab.rapdis 10/10/18 Unknown Rx predniSONE [Deltasone] 40 mg PO QDAY #10 tab 10/10/18 Unknown Rx traMADoL [Ultram 50 MG tab] 50 mg PO Q6HR PRN #10 tablet 11/21/18 Unknown Rx Azithromycin [Zithromax TAB] 500 mg PO QDAY 4 Days #4 tablet 02/27/20 Unknown Rx Dexamethasone [Taperdex] 1.5 mg PO DAILY 7 Days #1 tab.ds.pk 02/27/20 Unknown Rx HYDROcodone/APAP 5-325 [[place] 1 each PO Q6HR PRN #10 tablet 07/19/20 Unknown Rx 5/325] Allergies Allergy/AdvReac Type Severity Reaction Status Date / Time No Known Allergies Allergy Verified 11/21/18 16:06 ED Review of Systems ROS: Stated complaint: ABD PAIN, SWELLING IN LT BREAST,SOB Other details as noted in HPI Comment: All other systems reviewed and negative Constitutional: denies: chills, fever Gastrointestinal: abdominal pain. denies: nausea, vomiting, diarrhea, constipation Musculoskeletal: as per HPI ED Past Medical Hx - Past Medical History Previous Medical History?: Yes Hx GERD: Yes Additional medical history: gastric ulcer - Surgical History Past Surgical History?: Yes Hx Appendectomy: Yes Hx Breast Surgery: Yes (bilateral mast / breast implants) Additional Surgical History: tubal ligation. tonsillectomy. partial hysterectomy. breast removal - Social History Smoking Status: Current Some Day Smoker Substance Use Type: Marijuana - Medications Home Medications: Home Medications Medication Instructions Recorded Confirmed Last Taken Type traMADoL [Ultram 50 MG tab] 50 mg PO Q6HR PRN #30 tablet 01/04/17 Unknown Rx Cyclobenzaprine [Flexeril] 10 mg PO TID PRN #30 tablet 03/01/17 Unknown Rx Naproxen [Naprosyn TAB] 500 mg PO BID PRN #30 tablet 03/01/17 Unknown Rx Sulfamethoxazole/Trimethoprim 1 each PO BID #14 tablet 03/01/17 Unknown Rx [Bactrim DS TAB] Cyclobenzaprine [Flexeril] 10 mg PO TID PRN #30 tablet 06/08/18 Unknown Rx Ibuprofen [Ibuprofen 400] 400 mg PO QID 5 Days #20 tablet 06/08/18 Unknown Rx Cyclobenzaprine [Flexeril] 10 mg PO QHS PRN #10 tablet 07/17/18 Unknown Rx Naproxen 500 mg PO Q8H PRN #20 tablet 07/17/18 Unknown Rx Acetamin/Codeine 120-12Mg/5 ml 5 ml PO TID PRN #60 ml 10/10/18 Unknown Rx [Tylenol/Codeine] Azithromycin [Zithromax] 250 mg PO DAILY #6 tablet 10/10/18 Unknown Rx Ondansetron [Zofran ODT TAB] 8 mg PO TID #20 tab.rapdis 10/10/18 Unknown Rx predniSONE [Deltasone] 40 mg PO QDAY #10 tab 10/10/18 Unknown Rx traMADoL [Ultram 50 MG tab] 50 mg PO Q6HR PRN #10 tablet 11/21/18 Unknown Rx Azithromycin [Zithromax TAB] 500 mg PO QDAY 4 Days #4 tablet 02/27/20 Unknown Rx Dexamethasone [Taperdex] 1.5 mg PO DAILY 7 Days #1 tab.ds.pk 02/27/20 Unknown Rx HYDROcodone/APAP 5-325 [[place] 1 each PO Q6HR PRN #10 tablet 07/19/20 Unknown Rx 5/325] ED Physical Exam - General Limitations: No Limitations General appearance: alert, in no apparent distress - Head Head exam: Present: atraumatic, normocephalic - Eye Eye exam: Present: normal appearance, EOMI - ENT ENT exam: Present: mucous membranes moist - Neck Neck exam: Present: normal inspection - Respiratory Respiratory exam: Present: normal lung sounds bilaterally, chest wall tenderness (mild swelling, moderate tenderness to left chest wall; no erythema or induration). Absent: respiratory distress - Cardiovascular Cardiovascular Exam: Present: regular rate, normal rhythm - GI/Abdominal GI/Abdominal exam: Present: distended (Moderate), tenderness (Mild left upper quadrant) - Extremities Exam Extremities exam: Present: normal inspection - Neurological Exam Neurological exam: Present: alert, oriented X3 - Psychiatric Psychiatric exam: Present: normal affect, normal mood - Skin Skin exam: Present: warm, dry, intact, normal color ED Course Vital Signs 07/19/20 11:11 Temperature 98.1 F Pulse Rate 83 Respiratory 22 Rate Blood Pressure 143/90 [Right] O2 Sat by Pulse 99 Oximetry ED Medical Decision Making - Lab Data Result diagrams: 07/19/20 11:33 07/19/20 11:33 - Radiology Data Radiology results: report reviewed Radiology report did not crossover into [employer]. Impression states No acute process in the chest, abdomen, or pelvis. Incidental finding of 7 to 8 mm hypodensity in the spleen which could represent a vascular lesion such as hemangioma. - Medical Decision Making 50-year-old female presents to ED with abdominal distention and acute on chronic pain and swelling to the left chest wall. Labs are unremarkable, including liver enzymes. CT chest abdomen pelvis was performed which was only significant for a right ovarian cyst. There is no evidence of any sort of induration/cellulitis/abscess of the left chest wall. Only small amount of free fluid present in the pelvis. No explanation for patient's abdominal distention. 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 She has also been given follow-up information for gynecology, for follow-up on her ovarian cyst. Patient will be discharged at this time with prescriptions. Return precautions given. - Differential Diagnosis Ascites, ovarian malignancy, abscess, liver failure Critical care attestation.: If time is entered above; I have spent that time in minutes in the direct care of this critically ill patient, excluding procedure time. ED Disposition Clinical Impression: Abdominal distension, Chest wall pain, chronic, Right ovarian cyst Disposition: - TO HOME OR SELFCARE Is pt being admited?: No Condition: Stable Instructions: Abdominal Bloating, Chest Wall Pain, [id number], Ovarian Cyst, [id number], Chest Pain (ED), Abdominal Pain (ED) Prescriptions: HYDROcodone/APAP 5-325 [[place] 5/325] 1 each PO Q6HR PRN #10 tablet PRN Reason: Pain Referrals: [facility] [Provider Group] - 3-5 Days JESSY JOHNSON MD [Staff Physician] - 3-5 Days ANDREW PATTON MD [Staff Physician] - 3-5 Days PRIMARY CAREMD [Primary Care Provider] - 3-5 Days Time of Disposition: 20:54
[2020-07-19] MEDS ORDERED: ALUM-MAG HYDROXIDE-SIMETHICONE 200-200-20MG/5ML ORAL LIQD 30 ML PO ONE (21:34)
== END 2020-07-19 21:40 | disposition home or self-care (01) ==
LOC: ED 10:51
DX: N83.201 Unspecified ovarian cyst, right side (principal); R07.89 Other chest pain; R14.0 Abdominal distension (gaseous); K21.9 Gastro-esophageal reflux disease without esophagitis; Z90.49 Acquired absence of other specified parts of digestive tract; F17.200 Nicotine dependence, unspecified, uncomplicated; F12.10 Cannabis abuse, uncomplicated; Z98.890 Other specified postprocedural states; Z79.2 Long term (current) use of antibiotics; Z79.899 Other long term (current) drug therapy
CPT/HCPCS: 36415; 71260; 74177; 80053; 83690; 84703; 85025; 96374; 96375; 99284; J2270; J2405; Q9967

== ENCOUNTER 2020-11-09 08:25 | Emergency (ER) | payer BC ==
[2020-11-09 11:21] VITALS: BP 144/103
--- NOTE | 2020-11-09 11:26 | Emergency Department Report ---
ED General Adult HPI - General Chief complaint: Extremity Injury, Upper Stated complaint: THUMBS SWOLLEN, SHOULDER PAIN Time Seen by Provider: 11/09/20 11:06 Source: patient Mode of arrival: Ambulatory Limitations: No Limitations - History of Present Illness Initial comments: Patient is a 50-year-old female presents emergency room with complaints of suzanne ateral shoulder pain and bilateral thumb pain that began a week ago. She denies any fall or injury. 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 Patient states that she has pain with lifting her arms up. She states that she also has pain with movement of her thumb and gripping things. She denies any numbness or weakness. She is able to grasp her phone and place it to her ear without any difficulty. She denies any fall or injury. Past medical history of bilateral mastectomy and gastric ulcer. She denies any history of diabetes. No allergies to medications. - Related Data Previous Rx's Medication Instructions Recorded Last Taken Type traMADoL [Ultram 50 MG tab] 50 mg PO Q6HR PRN #30 tablet 01/04/17 Unknown Rx Cyclobenzaprine [Flexeril] 10 mg PO TID PRN #30 tablet 03/01/17 Unknown Rx Naproxen [Naprosyn TAB] 500 mg PO BID PRN #30 tablet 03/01/17 Unknown Rx Sulfamethoxazole/Trimethoprim 1 each PO BID #14 tablet 03/01/17 Unknown Rx [Bactrim DS TAB] Cyclobenzaprine [Flexeril] 10 mg PO TID PRN #30 tablet 06/08/18 Unknown Rx Ibuprofen [Ibuprofen 400] 400 mg PO QID 5 Days #20 tablet 06/08/18 Unknown Rx Cyclobenzaprine [Flexeril] 10 mg PO QHS PRN #10 tablet 07/17/18 Unknown Rx Naproxen 500 mg PO Q8H PRN #20 tablet 07/17/18 Unknown Rx Acetamin/Codeine 120-12Mg/5 ml 5 ml PO TID PRN #60 ml 10/10/18 Unknown Rx [Tylenol/Codeine] Azithromycin [Zithromax] 250 mg PO DAILY #6 tablet 10/10/18 Unknown Rx Ondansetron [Zofran ODT TAB] 8 mg PO TID #20 tab.rapdis 10/10/18 Unknown Rx predniSONE [Deltasone] 40 mg PO QDAY #10 tab 10/10/18 Unknown Rx traMADoL [Ultram 50 MG tab] 50 mg PO Q6HR PRN #10 tablet 11/21/18 Unknown Rx Azithromycin [Zithromax TAB] 500 mg PO QDAY 4 Days #4 tablet 02/27/20 Unknown Rx Dexamethasone [Taperdex] 1.5 mg PO DAILY 7 Days #1 tab.ds.pk 02/27/20 Unknown Rx HYDROcodone/APAP 5-325 [[place] 1 each PO Q6HR PRN #10 tablet 07/19/20 Unknown Rx 5/325] Acetaminophen [Tylenol] 650 mg PO Q8HR PRN #20 capsule 11/09/20 Unknown Rx Diclofenac Sodium [Voltaren 1 applicatio TP BID #20 gel..gram. 11/09/20 Unknown Rx Arthritis Pain] Prednisone [predniSONE 10 mg 10 mg PO .TAPER #1 tab.ds.pk 11/09/20 Unknown Rx (6-Day Pack, 21 Tabs)] methOCARBAMOL [Robaxin TAB] 500 mg PO BID PRN #14 tab 11/09/20 Unknown Rx Allergies Allergy/AdvReac Type Severity Reaction Status Date / Time No Known Allergies Allergy Verified 11/09/20 08:36 ED Review of Systems ROS: Stated complaint: THUMBS SWOLLEN, SHOULDER PAIN Other details as noted in HPI Comment: All other systems reviewed and negative ED Past Medical Hx - Past Medical History Hx GERD: Yes Additional medical history: gastric ulcer - Surgical History Hx Appendectomy: Yes Hx Breast Surgery: Yes (bilateral mast / breast implants) Additional Surgical History: tubal ligation. tonsillectomy. partial hysterectomy. breast removal - Social History Smoking Status: Current Some Day Smoker Substance Use Type: Marijuana - Medications Home Medications: Home Medications Medication Instructions Recorded Confirmed Last Taken Type traMADoL [Ultram 50 MG tab] 50 mg PO Q6HR PRN #30 tablet 01/04/17 Unknown Rx Cyclobenzaprine [Flexeril] 10 mg PO TID PRN #30 tablet 03/01/17 Unknown Rx Naproxen [Naprosyn TAB] 500 mg PO BID PRN #30 tablet 03/01/17 Unknown Rx Sulfamethoxazole/Trimethoprim 1 each PO BID #14 tablet 03/01/17 Unknown Rx [Bactrim DS TAB] Cyclobenzaprine [Flexeril] 10 mg PO TID PRN #30 tablet 06/08/18 Unknown Rx Ibuprofen [Ibuprofen 400] 400 mg PO QID 5 Days #20 tablet 06/08/18 Unknown Rx Cyclobenzaprine [Flexeril] 10 mg PO QHS PRN #10 tablet 07/17/18 Unknown Rx Naproxen 500 mg PO Q8H PRN #20 tablet 07/17/18 Unknown Rx Acetamin/Codeine 120-12Mg/5 ml 5 ml PO TID PRN #60 ml 10/10/18 Unknown Rx [Tylenol/Codeine] Azithromycin [Zithromax] 250 mg PO DAILY #6 tablet 10/10/18 Unknown Rx Ondansetron [Zofran ODT TAB] 8 mg PO TID #20 tab.rapdis 10/10/18 Unknown Rx predniSONE [Deltasone] 40 mg PO QDAY #10 tab 10/10/18 Unknown Rx traMADoL [Ultram 50 MG tab] 50 mg PO Q6HR PRN #10 tablet 11/21/18 Unknown Rx Azithromycin [Zithromax TAB] 500 mg PO QDAY 4 Days #4 tablet 02/27/20 Unknown Rx Dexamethasone [Taperdex] 1.5 mg PO DAILY 7 Days #1 tab.ds.pk 02/27/20 Unknown Rx HYDROcodone/APAP 5-325 [[place] 1 each PO Q6HR PRN #10 tablet 07/19/20 Unknown Rx 5/325] Acetaminophen [Tylenol] 650 mg PO Q8HR PRN #20 capsule 11/09/20 Unknown Rx Diclofenac Sodium [Voltaren 1 applicatio TP BID #20 gel..gram. 11/09/20 Unknown Rx Arthritis Pain] Prednisone [predniSONE 10 mg 10 mg PO .TAPER #1 tab.ds.pk 11/09/20 Unknown Rx (6-Day Pack, 21 Tabs)] methOCARBAMOL [Robaxin TAB] 500 mg PO BID PRN #14 tab 11/09/20 Unknown Rx ED Physical Exam - General Limitations: No Limitations General appearance: alert, in no apparent distress - Head Head exam: Present: atraumatic, normocephalic - Eye Eye exam: Present: normal appearance - ENT ENT exam: Present: mucous membranes moist - Neck Neck exam: Present: normal inspection, full ROM. Absent: tenderness - Respiratory Respiratory exam: Present: normal lung sounds bilaterally. Absent: respiratory distress, wheezes, rales, rhonchi, stridor, chest wall tenderness, accessory muscle use, decreased breath sounds, prolonged expiratory - Cardiovascular Cardiovascular Exam: Present: regular rate, normal rhythm, normal heart sounds. Absent: systolic murmur, diastolic murmur, rubs, gallop - Extremities Exam Extremities exam: Present: other (no bony ttp of the BUE, no appreciable edema present to the BUE, no skin changes, mild ttp of the bilateral thenar emminences, FROM of the BUE, pain with flexion of the thumb and full flexion of the shoulders above the head, clavicles are equal, no clavicular ttp, neurovascularly intact ) - Neurological Exam Neurological exam: Present: alert, oriented X3, CN II-XII intact, normal gait. Absent: motor sensory deficit - Psychiatric Psychiatric exam: Present: normal affect, normal mood - Skin Skin exam: Present: warm, dry, intact ED Course Vital Signs 11/09/20 08:33 Temperature 98.4 F Pulse Rate 89 Respiratory 18 Rate Blood Pressure 144/103 O2 Sat by Pulse 95 Oximetry ED Medical Decision Making - Medical Decision Making Patient is a 50-year-old female presents emergency room with complaints of bilateral shoulder pain and bilateral thumb pain that began a week ago. She denies any fall or injury. 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 Patient states that she has pain with lifting her arms up. She states that she also has pain with movement of her thumb and gripping things. She denies any numbness or weakness. She is able to grasp her phone and place it to her ear without any difficulty. She denies any fall or injury. Past medical history of bilateral mastectomy and gastric ulcer. She denies any history of diabetes. No allergies to medications. Vitals are stable. On exam:no bony ttp of the BUE, no appreciable edema present to the BUE, no skin changes, mild ttp of the bilateral thenar emminences, FROM of the BUE, pain with flexion of the thumb and full flexion of the shoulders above the head, clavicles are equal, no clavicular ttp, neurovascularly intact. Symptoms could be related to muscle strain versus tendinitis versus carpal tunnel versus tenosynovitis. She has no clinical signs of septic joint or infectious tenosynovitis. She has had no acute trauma, no clinical signs of acute fracture or dislocation. Discussed the importance of orthopedic follow-up. Discussed primary care follow-up. Advised patient Please use medication as prescribed. Do not drive or operate machinery while taking muscle relaxer Robaxin. May use ice pack, heating pad, rest, and epsom salt bath. Follow-up with orthopedic doctor. Follow-up with your primary care doctor. Return to emergency room for any worsening symptoms. Critical care attestation.: If time is entered above; I have spent that time in minutes in the direct care of this critically ill patient, excluding procedure time. ED Disposition Clinical Impression: Bilateral thumb pain Bilateral shoulder pain Qualifiers: Chronicity: acute Qualified Code(s): M25.511 - Pain in right shoulder Disposition: DC- TO HOME OR SELFCARE Is pt being admited?: No Does the pt Need Aspirin: No Condition: Stable Instructions: Shoulder Pain, Musculoskeletal Pain Additional Instructions: Please use medication as prescribed. Do not drive or operate machinery while taking muscle relaxer Robaxin. May use ice pack, heating pad, rest, and epsom salt bath. Follow-up with orthopedic doctor. Follow-up with your primary care doctor. Return to emergency room for any worsening symptoms. Prescriptions: Prednisone [predniSONE 10 mg (6-Day Pack, 21 Tabs)] 10 mg PO .TAPER #1 tab.ds.pk methOCARBAMOL [Robaxin TAB] 500 mg PO BID PRN #14 tab PRN Reason: pain Acetaminophen [Tylenol] 650 mg PO Q8HR PRN #20 capsule PRN Reason: pain Diclofenac Sodium [Voltaren Arthritis Pain] 1 applicatio TP BID #20 gel..gram. Referrals: MEJIA REBOLLEDO MD [Primary Care Provider] - 2-3 Days PAWEL WARNER MD [Staff Physician] - 2-3 Days [facility] [Provider Group] - 2-3 Days Time of Disposition: 11:26 Print Language: [place] CITIZEN
== END 2020-11-09 11:34 | disposition home or self-care (01) ==
LOC: ED 08:25
DX: M25.511 Pain in right shoulder (principal); M25.512 Pain in left shoulder; M79.644 Pain in right finger(s); M79.645 Pain in left finger(s); K21.9 Gastro-esophageal reflux disease without esophagitis; F17.200 Nicotine dependence, unspecified, uncomplicated; F12.90 Cannabis use, unspecified, uncomplicated; Z79.899 Other long term (current) drug therapy; Z98.51 Tubal ligation status; Z98.890 Other specified postprocedural states; Z90.49 Acquired absence of other specified parts of digestive tract; Z90.710 Acquired absence of both cervix and uterus
CPT/HCPCS: 99282

== ENCOUNTER 2022-02-26 10:33 | Emergency (ER) | payer OTHER ==
[2022-02-26] MEDS ORDERED: dexAMETHasone 4 MG/ML VIAL IM ONE (11:02)
[2022-02-26] MEDS ORDERED: HYDROcodone/ACETAMINOPHEN 5-325 MG TAB PO ONE (11:03)
[2022-02-26] MEDS ORDERED: IBUPROFEN 800 MG TAB PO ONE (11:03)
[2022-02-26] MEDS ORDERED: CYCLOBENZAPRINE 10 MG TAB PO ONE (11:03)
--- NOTE | 2022-02-26 11:41 | Emergency Department Report ---
ED Back Pain/Injury HPI - General Chief Complaint: Back Pain/Injury Stated Complaint: PAIN IN R HAND BACK AND LEG Time Seen by Provider: 02/26/22 10:52 Source: patient Limitations: No Limitations - History of Present Illness Initial Comments: 51 YO COMES TO ER WITH A/C LOW BACK PAIN. HAD MRI LAST WEEK. HAS HERNIATE DISC AND IS WAITING FOR PCP TO GIVE REFERRAL TO CHRONIC PAIN MD. COMES IN FOR PAIN OF BACK RAD DOWN RIGHT LEG. AMBULATORY. NO FEVER. NO CHILLS. NO S/S CAUDA EQUINA. NO TRAUMA. MD Complaint: back pain -: month(s) Similar Symptoms Previously: Yes Place: home Radiation: right leg Severity: moderate Severity scale (0 -10): 6 Quality: burning Consistency: constant Improves With: none Worsens With: none Associated Symptoms: denies other symptoms - Related Data Previous Rx's Medication Instructions Recorded Last Taken Type traMADoL [Ultram 50 MG tab] 50 mg PO Q6HR PRN #30 tablet 01/04/17 Unknown Rx Cyclobenzaprine [Flexeril] 10 mg PO TID PRN #30 tablet 03/01/17 Unknown Rx Naproxen [Naprosyn TAB] 500 mg PO BID PRN #30 tablet 03/01/17 Unknown Rx Sulfamethoxazole/Trimethoprim 1 each PO BID #14 tablet 03/01/17 Unknown Rx [Bactrim DS TAB] Cyclobenzaprine [Flexeril] 10 mg PO TID PRN #30 tablet 06/08/18 Unknown Rx Ibuprofen [Ibuprofen 400] 400 mg PO QID 5 Days #20 tablet 06/08/18 Unknown Rx Cyclobenzaprine [Flexeril] 10 mg PO QHS PRN #10 tablet 07/17/18 Unknown Rx Naproxen 500 mg PO Q8H PRN #20 tablet 07/17/18 Unknown Rx Acetamin/Codeine 120-12Mg/5 ml 5 ml PO TID PRN #60 ml 10/10/18 Unknown Rx [Tylenol/Codeine] Azithromycin [Zithromax] 250 mg PO DAILY #6 tablet 10/10/18 Unknown Rx Ondansetron [Zofran ODT TAB] 8 mg PO TID #20 tab.rapdis 10/10/18 Unknown Rx predniSONE [Deltasone] 40 mg PO QDAY #10 tab 10/10/18 Unknown Rx traMADoL [Ultram 50 MG tab] 50 mg PO Q6HR PRN #10 tablet 11/21/18 Unknown Rx Azithromycin [Zithromax TAB] 500 mg PO QDAY 4 Days #4 tablet 02/27/20 Unknown Rx Dexamethasone [Taperdex] 1.5 mg PO DAILY 7 Days #1 tab.ds.pk 02/27/20 Unknown Rx HYDROcodone/APAP 5-325 [[place] 1 each PO Q6HR PRN #10 tablet 07/19/20 Unknown Rx 5/325] Acetaminophen [Tylenol] 650 mg PO Q8HR PRN #20 capsule 11/09/20 Unknown Rx Diclofenac Sodium [Voltaren 1 applicatio TP BID #20 gel..gram. 11/09/20 Unknown Rx Arthritis Pain] Prednisone [predniSONE 10 mg 10 mg PO .TAPER #1 tab.ds.pk 11/09/20 Unknown Rx (6-Day Pack, 21 Tabs)] methOCARBAMOL [Robaxin TAB] 500 mg PO BID PRN #14 tab 11/09/20 Unknown Rx Cyclobenzaprine [Flexeril] 10 mg PO TID PRN #10 tablet 02/26/22 Unknown Rx Ibuprofen [Motrin] 800 mg PO Q8HR PRN #30 tablet 02/26/22 Unknown Rx predniSONE [Deltasone] 20 mg PO DAILY #5 tablet 02/26/22 Unknown Rx Allergies Allergy/AdvReac Type Severity Reaction Status Date / Time No Known Allergies Allergy Verified 11/09/20 08:36 ED Review of Systems ROS: Stated complaint: PAIN IN R HAND BACK AND LEG Other details as noted in HPI Comment: All other systems reviewed and negative ED Past Medical Hx - Past Medical History Previous Medical History?: Yes Hx GERD: Yes Additional medical history: gastric ulcer, herniated disc - Surgical History Past Surgical History?: Yes Hx Appendectomy: Yes Hx Breast Surgery: Yes (bilateral mast / breast implants) Additional Surgical History: tubal ligation. tonsillectomy. partial hysterectomy. breast removal - Family History Family history: no significant - Social History Smoking Status: Current Some Day Smoker Substance Use Type: Marijuana - Medications Home Medications: Home Medications Medication Instructions Recorded Confirmed Last Taken Type traMADoL [Ultram 50 MG tab] 50 mg PO Q6HR PRN #30 tablet 01/04/17 Unknown Rx Cyclobenzaprine [Flexeril] 10 mg PO TID PRN #30 tablet 03/01/17 Unknown Rx Naproxen [Naprosyn TAB] 500 mg PO BID PRN #30 tablet 03/01/17 Unknown Rx Sulfamethoxazole/Trimethoprim 1 each PO BID #14 tablet 03/01/17 Unknown Rx [Bactrim DS TAB] Cyclobenzaprine [Flexeril] 10 mg PO TID PRN #30 tablet 06/08/18 Unknown Rx Ibuprofen [Ibuprofen 400] 400 mg PO QID 5 Days #20 tablet 06/08/18 Unknown Rx Cyclobenzaprine [Flexeril] 10 mg PO QHS PRN #10 tablet 07/17/18 Unknown Rx Naproxen 500 mg PO Q8H PRN #20 tablet 07/17/18 Unknown Rx Acetamin/Codeine 120-12Mg/5 ml 5 ml PO TID PRN #60 ml 10/10/18 Unknown Rx [Tylenol/Codeine] Azithromycin [Zithromax] 250 mg PO DAILY #6 tablet 10/10/18 Unknown Rx Ondansetron [Zofran ODT TAB] 8 mg PO TID #20 tab.rapdis 10/10/18 Unknown Rx predniSONE [Deltasone] 40 mg PO QDAY #10 tab 10/10/18 Unknown Rx traMADoL [Ultram 50 MG tab] 50 mg PO Q6HR PRN #10 tablet 11/21/18 Unknown Rx Azithromycin [Zithromax TAB] 500 mg PO QDAY 4 Days #4 tablet 02/27/20 Unknown Rx Dexamethasone [Taperdex] 1.5 mg PO DAILY 7 Days #1 tab.ds.pk 02/27/20 Unknown Rx HYDROcodone/APAP 5-325 [[place] 1 each PO Q6HR PRN #10 tablet 07/19/20 Unknown Rx 5/325] Acetaminophen [Tylenol] 650 mg PO Q8HR PRN #20 capsule 11/09/20 Unknown Rx Diclofenac Sodium [Voltaren 1 applicatio TP BID #20 gel..gram. 11/09/20 Unknown Rx Arthritis Pain] Prednisone [predniSONE 10 mg 10 mg PO .TAPER #1 tab.ds.pk 11/09/20 Unknown Rx (6-Day Pack, 21 Tabs)] methOCARBAMOL [Robaxin TAB] 500 mg PO BID PRN #14 tab 11/09/20 Unknown Rx Cyclobenzaprine [Flexeril] 10 mg PO TID PRN #10 tablet 02/26/22 Unknown Rx Ibuprofen [Motrin] 800 mg PO Q8HR PRN #30 tablet 02/26/22 Unknown Rx predniSONE [Deltasone] 20 mg PO DAILY #5 tablet 02/26/22 Unknown Rx ED Physical Exam - General Limitations: No Limitations General appearance: alert, in no apparent distress - Head Head exam: Present: atraumatic, normocephalic - Eye Eye exam: Present: normal appearance - ENT ENT exam: Present: mucous membranes moist - Neck Neck exam: Present: normal inspection - Respiratory Respiratory exam: Present: normal lung sounds bilaterally. Absent: respiratory distress - Cardiovascular Cardiovascular Exam: Present: regular rate, normal rhythm. Absent: systolic murmur, diastolic murmur, rubs, gallop - GI/Abdominal GI/Abdominal exam: Present: soft, normal bowel sounds - Extremities Exam Extremities exam: Present: normal inspection - Back Exam Back exam: Present: normal inspection - Expanded Back Exam Expanded Back exam: Positive Straight Leg Raise: Right - Neurological Exam Neurological exam: Present: alert, oriented X3 - Psychiatric Psychiatric exam: Present: normal affect, normal mood - Skin Skin exam: Present: warm, dry, intact, normal color. Absent: rash ED Course Vital Signs 02/26/22 02/26/22 10:48 11:18 Temperature 97.8 F 98.9 F Pulse Rate 95 H 78 Respiratory 20 Rate Blood Pressure 145/89 Blood Pressure 124/87 [Right] O2 Sat by Pulse 100 Oximetry ED Medical Decision Making - Medical Decision Making NO SPINE TENDERNESS NO S/S CAUDA EQUINA NEURO INTACT AMBULATORY Vital Signs 02/26/22 02/26/22 10:48 11:18 Temperature 97.8 F 98.9 F Pulse Rate 95 H 78 Respiratory 20 Rate Blood Pressure 145/89 Blood Pressure 124/87 [Right] O2 Sat by Pulse 100 Oximetry MEDICATED WITH DECADRON/FLEXERIL AND MOTRIN; AND NORCO I'VE INFORMED PT WE DO NOT TREAT CHRONIC PAIN DC HOME WITH DC PLAN OF CARE INCLUDING PCP FOLLOW UP IN AM. - Differential Diagnosis A/C BACK PAIN Critical care attestation.: If time is entered above; I have spent that time in minutes in the direct care of this critically ill patient, excluding procedure time. ED Disposition Clinical Impression: Back pain, chronic Qualifiers: Back pain location: low back pain Back pain laterality: right Sciatica presence: with sciatica Sciatica laterality: sciatica of right side Qualified Code(s): M54.41 - Lumbago with sciatica, right side; G89.29 - Other chronic pain Disposition: 01 HOME / SELF CARE / HOMELESS Is pt being admited?: No Does the pt Need Aspirin: No Condition: Stable Instructions: Chronic Back Pain Additional Instructions: FOLLOW UP WITH MD IN AM MEDS ORDERED TODAY Prescriptions: predniSONE [Deltasone] 20 mg PO DAILY #5 tablet Cyclobenzaprine [Flexeril] 10 mg PO TID PRN #10 tablet PRN Reason: Muscle Spasm Ibuprofen [Motrin] 800 mg PO Q8HR PRN #30 tablet PRN Reason: Pain, Moderate (4-6) Referrals: LINDY GEORGES MD [Primary Care Provider] - 3-5 Days PAWEL WARNER MD [Staff Physician] - 3-5 Days Forms: Work/School Release Form(ED) Time of Disposition: 11:04
[2022-02-26 12:08] VITALS: BP 114/83
== END 2022-02-26 12:08 | disposition home or self-care (01) ==
LOC: ED 10:33
DX: G89.29 Other chronic pain (principal); M54.9 Dorsalgia, unspecified; F17.200 Nicotine dependence, unspecified, uncomplicated; F12.90 Cannabis use, unspecified, uncomplicated; Z90.89 Acquired absence of other organs
CPT/HCPCS: 96372; 99282; J1100